=== PATIENT | female | born 1940 | race Caucasian/White ===

== ENCOUNTER → 2017-05-01 | Outpatient (CLI) | payer MEDICARE, BC ==
--- NOTE | 2017-05-01 08:50 | REPMRS ---
Patient History The patient states she has not had a clinical breast exam in over a year. Patient is postmenopausal. No known family history of cancer. Took unspecified hormones for 5 years. Digital Woman Screen Mammo: May 01, 2017 - Exam #: [id number] Bilateral CC and MLO view(s) were taken. Technologist: Do Marie, Technologist Prior study comparison: May 19, 2011, digital bilateral screening mammo performed at [facility]. May 17, 2010, digital bilateral screening mammo performed at [facility]. May 16, 2009, digital bilateral screening mammo performed at [facility]. FINDINGS: The breast tissue is almost entirely fat. There has been no change in the appearance of the mammogram from the prior studies. There is no interval development of dominant mass, architectural distortion, or clustered microcalcification typical of malignancy. ASSESSMENT: BI-RADS/ACR category 1 mammogram. Negative. Recommendation Routine screening mammogram of both breasts in 1 year (for women over age 40). This mammogram was interpreted with the aid of an FDA-approved computer-aided dectection system. Electronically Signed By: Mo Torres MD 05/01/17 0850
== END ==
LOC: M WHC 07:56
PROVIDERS: ATTEND Family Medicine
DX: Z12.31 Encounter for screening mammogram for malignant neoplasm of breast (principal)

== ENCOUNTER 2018-04-12 06:13 | Day surgery (SDC) | payer MEDICARE, BC ==
[2018-04-12] MEDS ORDERED: LIDOCAINE 2% INJ 100 MG/5 ML SDV (FOR ANES.) As Ordered (06:59)
[2018-04-12] MEDS ORDERED: PROPOFOL 200 MG/20 ML VIAL As Ordered ×2 (06:59)
[2018-04-12] MEDS: NS 1,000 ML IV (07:08)
== END 2018-04-12 08:33 | disposition home or self-care (01) ==
LOC: M OPP 06:13
DX: Z12.11 Encounter for screening for malignant neoplasm of colon (principal); Z86.010 Personal history of colon polyps; D12.2 Benign neoplasm of ascending colon; K64.0 First degree hemorrhoids; K57.30 Diverticulosis of large intestine without perforation or abscess without bleeding; I10 Essential (primary) hypertension; K21.9 Gastro-esophageal reflux disease without esophagitis; R12 Heartburn; Z79.899 Other long term (current) drug therapy
CPT/HCPCS: 45380

== ENCOUNTER → 2018-04-23 | Outpatient (CLI) | payer MEDICARE, BC | LOC: M WHC 14:29 | DX: Z12.31 Encounter for screening mammogram for malignant neoplasm of breast (principal); Z13.820 Encounter for screening for osteoporosis; M85.851 Other specified disorders of bone density and structure, right thigh; M85.852 Other specified disorders of bone density and structure, left thigh | CPT/HCPCS: 77067 ==

== ENCOUNTER → 2021-03-29 | Outpatient (CLI) | payer MEDICARE ==
[~2021-03-29] MED LIST: ASPI1CHW2 PO; ECOT81TA5 PO; LISI-898 PO; LOVA20TA2 PO
--- NOTE | 2021-03-29 11:12 | REPMRS ---
Patient History The patient states she has not had a clinical breast exam in over a year. No known family history of cancer. Took unspecified hormones for 5 years. Patient states no breast complaints today. Patient has signed MRS History Sheet. Digital Woman Screen Mammo: March 29, 2021 - Exam #: [id number] Bilateral CC and MLO view(s) were taken. Technologist: Lenore Baker, Technologist Prior study comparison: April 23, 2018, bilateral digital woman screen mammo performed at [facility]. May 01, 2017, digital woman screen mammo performed at [facility]. May 19, 2011, digital bilateral screening mammo performed at [facility]. FINDINGS: There are scattered fibroglandular densities. The Volpara volumetric breast density category is:B. There are grouping of calcifications in the right breast superiorly, posterior 3rd at approximately the 1 o'clock position which merits further evaluation. There has been no other change in the appearance of the mammogram from the prior studies. There is a mild amount of scattered fibroglandular density which is fairly symmetric. There is no interval development of dominant mass, architectural distortion, or grouped microcalcification suggestive of malignancy. 3-D tomosynthesis shows no additional findings. Assessment: BI-RADS/ACR category 0 mammogram, Incomplete. Need additonal imaging evaluation and/or prior mammograms for comparison. Recommendation Special view mammogram of the right breast. This patient's [facility] Lifetime Breast Cancer Risk is estimated at 1.6 %. This mammogram was interpreted with the aid of an FDA-approved computer-aided dectection system. Electronically Signed By: Mo Torres MD 03/29/21 [id number]
--- NOTE | 2021-03-29 11:21 | DEXAMM ---
INDICATION: SCR FOR OSTEOPOROSIS.[id number]. COMPARISON: None. TECHNIQUE: Bone density was measured using dual-energy x-ray absorptionmetry (DEXA). FINDINGS: AP SPINE L1-L4 BMD 1.442 g/cm2 Young Adult T-Score 1.8 Age Matched Z-Score 3.7. LT FEMUR, TOTAL BMD 0.971 g/cm2 Young Adult T-Score -0.3 Age Matched Z-Score 1.8. LT NECK BMD point 838 g/cm2 Young Adult T-Score -1.4 Age Matched Z-Score 0.7. RT FEMUR, TOTAL BMD 0.951 g/cm2 Young Adult T-Score -0.5 Age Matched Z-Score 1.6. RT NECK BMD 0.848 g/cm2 Young Adult T-Score -1.4 Age Matched Z-Score 0.8. IMPRESSION: There is normal of the spine. There is normal of the left hip. There is normal of the right hip. . FOLLOW-UP: Recommendation for the next bone density exam: 2 years. <Electronically signed by Manohar Park > 03/29/21 9124
== END ==
LOC: M WHC 10:04
PROVIDERS: ATTEND Family Medicine
DX: R92.2 Inconclusive mammogram (principal); M81.0 Age-related osteoporosis without current pathological fracture; R78.0 Finding of alcohol in blood; Z13.820 Encounter for screening for osteoporosis; Z79.899 Other long term (current) drug therapy

== ENCOUNTER → 2021-04-11 | Outpatient (CLI) | payer MEDICARE ==
--- NOTE | 2021-04-11 14:34 | REP ---
INDICATION: ADDITIONAL VIEWS RT BREAST. COMPARISON: Comparison mammography March 29, 2021 showed microcalcifications. TECHNIQUE: Magnified focal spot-compression CC, MLO, and true mL views are obtained. 3D tomography is deployed in the mediolateral projection. This mammogram was interpreted with the aid of an FDA-approved computer-aided detection system. FINDINGS: Scattered fibroglandular elements are again seen. Magnified images confirm the presence of a polymorphic grouping of calcifications in the superior and medial aspect of the right breast at approximately the 1 o'clock position. These have progressed in number and should be considered suspicious. No associated soft tissue mass. Study is otherwise unremarkable. The Volpara volumetric breast density pattern is b. IMPRESSION: BIRADS/ACR category 4 suspicious right breast mammographic findings. Micro calcific grouping superomedial right breast at approximately the 1 o'clock position. This patient's Tyrer-Cuzick lifetime breast cancer risk assessment score is 1.6%. RECOMMENDATION: Stereotactic needle biopsy for microcalcifications right breast with clip placement and post clip placement mammography right breast recommended. The patient letter being requested is M4. <Electronically signed by Mo Torres > 04/11/21 [id number]
== END ==
LOC: M WHC 13:47
PROVIDERS: ATTEND Family Medicine
DX: Z13.820 Encounter for screening for osteoporosis (principal); Z13.21 Encounter for screening for nutritional disorder; N64.89 Other specified disorders of breast

== ENCOUNTER → 2021-05-01 | Outpatient (CLI) | payer MEDICARE ==
[~2021-05-01] MED LIST changes: +D 101000 PO
[2021-05-01 12:30] VITALS: BP 156/86
--- NOTE | 2021-05-05 19:02 | ROOPDOC ---
[facility] Report Of Operation Report of Operation DATE OF PROCEDURE: 05/01/21 DIAGNOSIS: Right breast suspicious calcifications PROCEDURE: Right breast stereotactic biopsy with clip placement SURGEON: Avila Villa BLOOD LOSS: minimal Lidocaine 1% LOT [id number] Expiration 10/2024 Sodium Bicarbonate 8.4% LOT [id number] Expiration 09/2021 Hydromark clip LOT [id number] Expiration 08/2023 SHAPE : 3 Bx device: Stereotactic Mammotome Revolve Dual Vacuum- assisted Biopsy System 10 G LOT [id number] Expiration 08/2023 REF [id number] Informed consent was obtained in the preop area. The most common risk and possible complications including bleeding, hematoma, bruising, infection, injury to surrounding structures were explained to the patient and patient expressed understanding. Patient was taken to the procedure room and placed prone on the [facility] Breast Biopsy table with the right breast hanging through the table opening. Right breast was placed into Cranio-Caudal compression and Religious Leader ricardo images were taken. Suspicious calcifications were identified on the ricardo images and target was set. CC approach from the bottom was chosen for this procedure. At this time, since we were able to confirm visibility of the suspicious calcifications and patient tolerated prone positioning allowing to proceed with the biopsy, appropriate time out was done stating patients name, date of , and the procedure to be performed. The right breast in CC compression was prepped in the usual fashion. Plain Lidocaine 1% and 8.4% sodium bicarbonate 10:1 mix was used to anesthetize the skin, the biopsy site and tissues along the anticipated biopsy tract. Small skin incision was made with blade number 11. Mammotome 10 G stereotactic breast biopsy device was inserted through the incision and advanced to the previously set coordinates marking the target lesion. Pre-fire imaging was taken to assure appropriate positioning. At this time, Mammotome 10 G breast biopsy device was fired and vacuum assisted biopsies were collected. The biopsy samples were investigated with [employer] system and calcifications were observed. Biopsy samples were then placed in the formaldehyde, marked with patients name and right breast biopsy site, and sent to pathology for evaluation. SHAPE 3 Hydromark clip was placed into the Mammotome biopsy device channel and deployed. Post-deployment imaging was done to assure appropriate clip deployment. Clip was noted in the right breast. Majority of calcifications was removed. There are some calcifications left behind on imaging. At this point, paddle CC compression of the right breast was released and manual pressure was held to decrease harmonic effect and to assure hemostasis. No bleeding was noted upon removal of the pressure. Patient was slowly repositioned and placed into sitting position, and then assisted off the table. Post-biopsy mammogram of the right breast was obtained and showed clip in expected position. Postprocedural dressing was placed. Patient tolerated procedure well and was taken to the recovery unit in stable condition. Discharge instructions were discussed with the patient and patient expressed understanding. Of note, patients blood pressure was noted to be high both pre and post procedure. I recommended that she follow up with her PCP. My staff will also update Dr Higgins about the blood pressure issue. AVILA VILLA DO May 05, 2021 19:02
== END ==
LOC: M WHCPRO 06:40
PROVIDERS: ATTEND Surgery
DX: D24.1 Benign neoplasm of right breast (principal)

== ENCOUNTER → 2021-12-11 | Outpatient (CLI) | payer MEDICARE ==
[~2021-12-11] MED LIST changes: -LISI-898 PO; +LISI5TAB11 PO
== END ==
LOC: M WHC 12:18
PROVIDERS: ATTEND Surgery
DX: R92.8 Other abnormal and inconclusive findings on diagnostic imaging of breast (principal)
CPT/HCPCS: 77065; G0279

== ENCOUNTER → 2022-07-28 | Outpatient (CLI) | payer MEDICARE ==
[~2022-07-28] MED LIST changes: +FOLI1TAB11 PO; +ISOVUE-370 76% 100ML VIAL As Ordered ONE; +VITA500T40 PO
== END ==
LOC: M RAD 07:46
PROVIDERS: ATTEND Family Medicine
DX: K55.9 Vascular disorder of intestine, unspecified (principal)
CPT/HCPCS: 74174; Q9967

== ENCOUNTER 2022-11-26 08:03 | Day surgery (SDC) | payer MEDICARE ==
[~2022-11-26] VITALS: Ht 152.4 cm; Wt 66.1 kg
[~2022-11-26 08:03] MED LIST changes: -ISOVUE-370 76% 100ML VIAL As Ordered ONE; +LIDOCAINE 2% 100MG/5ML SDV (FOR ANES.) As Ordered ONE; +NS 1,000 ML IV ONE; +ROSU20TA5 PO; +propofoL 200 MG/20 ML VIAL As Ordered ONE
[2022-11-26 11:11] VITALS: BP 134/64
== END 2022-11-26 10:50 | disposition home or self-care (01) ==
LOC: M OPP 08:03
PROVIDERS: ATTEND Internal Medicine Gastroenterology
DX: Z12.11 Encounter for screening for malignant neoplasm of colon (principal); Z86.010 Personal history of colon polyps; K64.0 First degree hemorrhoids; K57.30 Diverticulosis of large intestine without perforation or abscess without bleeding; Z79.02 Long term (current) use of antithrombotics/antiplatelets; Z79.82 Long term (current) use of aspirin; Z79.899 Other long term (current) drug therapy

== ENCOUNTER → 2022-12-12 | Outpatient (CLI) | payer MEDICARE ==
[~2022-12-12] MED LIST changes: -LIDOCAINE 2% 100MG/5ML SDV (FOR ANES.) As Ordered ONE; -NS 1,000 ML IV ONE; -propofoL 200 MG/20 ML VIAL As Ordered ONE
== END ==
LOC: M WHC 07:37
PROVIDERS: ATTEND Family Medicine
DX: Z12.31 Encounter for screening mammogram for malignant neoplasm of breast (principal)

== ENCOUNTER → 2023-12-28 | Outpatient (CLI) | payer MEDICARE ==
[~2023-12-28] MED LIST changes: -ROSU20TA5 PO; +ROSU20TA61 PO
== END ==
LOC: M WHC 08:43
PROVIDERS: ATTEND Family Medicine
DX: Z12.31 Encounter for screening mammogram for malignant neoplasm of breast (principal)

== ENCOUNTER → 2024-12-28 | Outpatient (CLI) | payer MEDICARE ==
[~2024-12-28] MED LIST changes: -ROSU20TA61 PO; +ROSU20TA86 PO
== END ==
LOC: M WHC 07:40
PROVIDERS: ATTEND Family Medicine
DX: Z12.31 Encounter for screening mammogram for malignant neoplasm of breast (principal)